=== PATIENT | male | born 1965 | race Caucasian/White ===

== ENCOUNTER 2019-05-04 15:36 | Inpatient (IN) | payer MEDICAID ==
[~2019-05-04] VITALS: Ht 193 cm; Wt 104.3 kg
[2019-05-04 15:49] VITALS: BP_SYST 145
--- NOTE | 2019-05-04 15:56 | NUR ---
Patient to ER bed 5 to gown for evaluation. Side rails up. Report given to Bala ZARCO.
--- NOTE | 2019-05-04 16:00 | NUR ---
ER at bedside examining patient.
--- NOTE | 2019-05-04 16:02 | NUR ---
Pt c/o L Arm pain. Pt h/o DVT. Pt has mild pain and denies SOB at this time.
--- NOTE | 2019-05-04 16:17 | NUR ---
US at bedside
[2019-05-04 16:38] LABS: EOSINOPHILS # (AUTO) 0.2 K/uL (0.0-0.4); EOSINOPHILS % (AUTO) 3.6 % (0.0-4.0); HEMATOCRIT 45.2 % (36-54); HEMOGLOBIN 15.5 g/dL (14.0-18.0); LYMPHOCYTES # (AUTO) 1.8 K/uL (1.0-5.5); LYMPHOCYTES % (AUTO) 33.4 % (20.5-51.5); MEAN CORPUSCULAR HEMOGLOBIN 30 pg (27-31); MEAN CORPUSCULAR HGB CONC 34 % (32-36); MEAN CORPUSCULAR VOLUME 88 fL (79.0-98.0); MONOCYTES # (AUTO) 0.6 K/uL (0.0-1.0); MONOCYTES % (AUTO) 10.6 % (1.7-9.3); PLATELET COUNT (AUTO) 152 K/uL (130-430); RED BLOOD CELL COUNT(AUTO) 5.16 MIL/uL (4.2-6.2); RED CELL DISTRIBUTION WIDTH 12.5 % (9.0-15.0); WHITE BLOOD COUNT (AUTO) 5.3 K/uL (4.8-10.8)
[2019-05-04 16:40] LABS: BASOPHILS % (AUTO) 0.4 % (0.0-2.0); NEUTROPHILS # (AUTO) 2.8 K/uL (1.8-7.7)
[2019-05-04 16:46] LABS: CALCIUM 8.8 mg/dL (8.4-11.0); CREATININE 0.89 mg/dL (0.55-1.30); POTASSIUM 4.7 mmol/L (3.5-5.1)
[2019-05-04 16:57] LABS: ALBUMIN 3.9 g/dL (3.4-4.8); TOTAL BILIRUBIN 0.6 mg/dL (0.0-1.0)
[2019-05-04 17:02] LABS: PROTHROMBIN TIME 10.3 SECS (9.5-12.5)
--- NOTE | 2019-05-04 17:25 | NUR ---
US completed, pt tolerated well.
[2019-05-04] MEDS ORDERED: ENOXAPARIN SODIUM 100 MG/ML SYRINGE SUBCUT ONE (18:00)
--- NOTE | 2019-05-04 18:08 | NUR ---
Patient will be admitted to care of . Admitted to TELEMETRY unit. Will go to room 118A. Belongings list completed. Summary report printed. Report will be given at bedside.
--- NOTE | 2019-05-04 18:30 | NUR ---
ADMISSION NOTE Received patient from ER via karen, received report from MIGUELINA ZARCO. Patient admitted with diagnosis of DVT LFT ARM . Patient oriented to hospital routine, call light, toileting and safety-patient verbalized understanding.
--- NOTE | 2019-05-04 18:35 | NUR ---
Admission Patient is A/Ox4, ambulatory with steady gait. No nausea, no vomiting. No dizziness. No complaints of pain at this this. Fiance at bedside. IV patent, intact. no bleeding noted. No infiltration. Oriented patient to the unit, and room. on safety precautions, HOB kept elevated. bed alarm on, bed in lowest position. Educated patient n the call light system, call light within reach. Patient in stable condition.
[2019-05-04 18:38] VITALS: BP_SYST 147
--- NOTE | 2019-05-04 18:50 | NUR ---
CONSULTATION PAGED/CALLED Reason for Consultation: UNPROVOKED DVT Person Who was Notified: LAVELLE Consulting Physician: DR. MARLEY Creel Selector Specialty: HEMATOLOGY Ordering Physician: DR. VARGAS
--- NOTE | 2019-05-04 19:30 | NUR ---
Opening notes Pt AAOx4, VSS, no s/s distress noted. IV saline lock R. FA 18G clear and patent. Pt's fiancee at bedside. Call light within reach. Pt updated with plan of care/consult with Paperhanger in AM, pt verbalized understanding. To monitor.
[2019-05-04 20:50] VITALS: BP_SYST 145
[2019-05-04] MEDS ORDERED: ZOLPIDEM TARTRATE 5 MG TABLET PO PRN (21:15)
[2019-05-04] MEDS ORDERED: ACETAMINOPHEN 500 MG TABLET PO PRN (21:15)
--- NOTE | 2019-05-04 21:52 | NUR ---
Pt left AMA Pt left AMA at 2141, but refused to sign AMA form, informed Dr. Chatman that pt states, "I was told by ER doctor that he will be seen by doctor/specialist susan and he will be bridged into warfarin or coumadin, but nothing is being done." Explained to pt risks/benefits. IV R forearm removed, ID band and tele box removed. Pt's fiancee at bedside. CRN aware.
--- NOTE | 2019-05-04 23:29 | NUR ---
CONSULTATION CANCELLED; CALLED TO CANCEL CONSULT. PT LEFT AMA. SPOKE WITH LAVELLE
[2019-05-05] MEDS ORDERED: FAMOTIDINE 20 MG TABLET PO SCH (09:00)
== END 2019-05-04 21:42 | disposition left against medical advice (07) | DRG 197 ==
LOC: SED 15:36 → STU 18:01
PROVIDERS: ADMIT Internal Medicine; ATTEND Internal Medicine
DX: I82.612 Acute embolism and thrombosis of superficial veins of left upper extremity (principal); F17.210 Nicotine dependence, cigarettes, uncomplicated; Z53.21 Procedure and treatment not carried out due to patient leaving prior to being seen by health care provider; Z86.718 Personal history of other venous thrombosis and embolism; Z86.711 Personal history of pulmonary embolism; Z87.01 Personal history of pneumonia (recurrent)
CPT/HCPCS: 36415; 80053; 83690-TC; 85025; 85610-TC; 85730-TC; 93971; 99285; G0378; J1650

== ENCOUNTER 2019-06-08 15:23 | Inpatient (IN) | payer MEDICAID ==
[~2019-06-08] VITALS: Ht 193 cm; Wt 113.4 kg
[2019-06-08 15:26] VITALS: BP_SYST 137
--- NOTE | 2019-06-08 15:34 | NUR ---
Patient to ER bed 8 to gown for evaluation. Side rails up. Report given to Zoraida ZARCO.
--- NOTE | 2019-06-08 15:35 | NUR ---
Pt brought by self , A&Ox4, pt presents to ER with R back pain,denies trauma , skin pink and warm, cap refill <3, VSS, respirations even and unlabored.
--- NOTE | 2019-06-08 15:45 | NUR ---
Dr Hayes at bedside examining patient
[2019-06-08 16:13] LABS: HEMATOCRIT 43.3 % (36-54); HEMOGLOBIN 14.8 g/dL (14.0-18.0); MEAN CORPUSCULAR VOLUME 87 fL (79.0-98.0); RED BLOOD CELL COUNT(AUTO) 4.98 MIL/uL (4.2-6.2)
[2019-06-08 16:14] LABS: BASOPHILS % (AUTO) 0.6 % (0.0-2.0); EOSINOPHILS # (AUTO) 0.2 K/uL (0.0-0.4); EOSINOPHILS % (AUTO) 3.4 % (0.0-4.0); LYMPHOCYTES # (AUTO) 1.5 K/uL (1.0-5.5); LYMPHOCYTES % (AUTO) 29.1 % (20.5-51.5); MEAN CORPUSCULAR HEMOGLOBIN 30 pg (27-31); MEAN CORPUSCULAR HGB CONC 34 % (32-36); MONOCYTES # (AUTO) 0.4 K/uL (0.0-1.0); MONOCYTES % (AUTO) 8.2 % (1.7-9.3); NEUTROPHILS # (AUTO) 2.9 K/uL (1.8-7.7); NEUTROPHILS % (AUTO) 58.7 % (40.0-70.0); PLATELET COUNT (AUTO) 135 K/uL (130-430); RED CELL DISTRIBUTION WIDTH 12.3 % (9.0-15.0)
[2019-06-08 16:39] LABS: CALCIUM 8.8 mg/dL (8.4-11.0); POTASSIUM 4.1 mmol/L (3.5-5.1)
[2019-06-08 16:40] LABS: ALBUMIN 3.9 g/dL (3.4-4.8); CREATININE 0.88 mg/dL (0.55-1.30); TOTAL BILIRUBIN 0.7 mg/dL (0.0-1.0)
[2019-06-08] MEDS ORDERED: IBUP-2604 PO (17:38)
[2019-06-08] MEDS ORDERED: RIVA10TA PO (17:38)
--- NOTE | 2019-06-08 17:39 | NUR ---
Pt off the unit for CT
[2019-06-08] MEDS ORDERED: IOHEXOL 350 mgI/mL, 150 ML INFUS..BTL IV ONE (18:00)
--- NOTE | 2019-06-08 18:10 | NUR ---
Pt returned from CT on stable condition, VSS
[2019-06-08] MEDS ORDERED: MORPHINE 2 MG/ML INJ. SYRINGE IVP ONE (18:30)
[2019-06-08] MEDS ORDERED: ONDANSETRON HCL 4 MG/2 ML VIAL IVP ONE (18:30)
[2019-06-08] MEDS ORDERED: ASPIRIN 81 MG TAB.CHEW PO ONE (19:00)
--- NOTE | 2019-06-08 19:11 | NUR ---
Pt A&Ox4, VSS, respirations even and unlabored, pt denies chest pain
[2019-06-08] MEDS ORDERED: ALBUTEROL SULFATE 0.083% 2.5 MG/3 ML VIAL.NEB INH PRN (19:30)
[2019-06-08] MEDS ORDERED: IPRATROPIUM BROM 0.5 MG/2.5 ML VIAL.NEB (ATROVENT) INH PRN (19:30)
--- NOTE | 2019-06-08 19:48 | NUR ---
ADMISSION: The patient, RAFAEL MORALES, 53 y/o, M admitted by MIRTA RAMIRES MD, was given written information regarding hospital policies, unit procedures and contact persons. Valuables were checked and pt oriented to his room and surroundings.
--- NOTE | 2019-06-08 19:53 | NUR ---
Patient will be admitted to care of Dr Reese . Admitted to Tele unit. Will go to room 100B . Belongings list completed. Summary report printed. Report will be given at bedside.
[2019-06-08 20:00] VITALS: BP_SYST 137
[2019-06-08] MEDS ORDERED: RIVAROXABAN 10 MG TABLET PO ONE (20:00)
[2019-06-08] MEDS: IPRATROPIUM BROM 0.5 MG/2.5 ML VIAL.NEB (ATROVENT) INH SCH ×2 (20:40→23:00)
[2019-06-08] MEDS: ALBUTEROL SULFATE 0.083% 2.5 MG/3 ML VIAL.NEB INH SCH ×2 (20:40→23:00)
--- NOTE | 2019-06-08 20:42 | NUR ---
Pt refused Xarelto and stated he already took this medication twice today.
[2019-06-08 20:59] VITALS: BP_SYST 127
--- NOTE | 2019-06-08 21:30 | NUR ---
Pt denies chest pain or pressure. HS snacks provided and pt ate 100%. Fall and safety precautions are in place.
--- NOTE | 2019-06-08 22:48 | NUR ---
Consultation Paged Reason for Consult: Elevated Troponin Was consult called: Y Person who was notified: Brandi Consulting Physician: Maxim [employer] Ordering Physician: Dr. Reese
--- NOTE | 2019-06-08 23:00 | NUR ---
Pt is sleeping without any distress noted. senior patrol agent is showing SR. Fall and safety precautions are in place. . Pt's fiance is sleeping in a recliner at the bedside
[2019-06-09] VITALS: BP_SYST 123
--- NOTE | 2019-06-09 01:00 | NUR ---
Pt is sleeping comfortably in bed with his fiance sleeping in a recliner at the bedside. study director is showing SR. Fall and safety precautions are in place.
[2019-06-09] MEDS: ALBUTEROL SULFATE 0.083% 2.5 MG/3 ML VIAL.NEB INH SCH ×6 (03:00→23:00)
[2019-06-09] MEDS: IPRATROPIUM BROM 0.5 MG/2.5 ML VIAL.NEB (ATROVENT) INH SCH ×6 (03:00→23:40)
--- NOTE | 2019-06-09 03:00 | NUR ---
Pt continues to sleep without any distress noted. Fall and safety precautions are in place. Pt's fiance is sleeping at the bedside in a recliner.
--- NOTE | 2019-06-09 04:30 | NUR ---
Pt is awake and c/o abdominal pain, which pt stated he gets every morning and has been taking Ibuprofen for the pain. Pt stated he does not want pain medication at this time, but he will call if he needs it. Pt denies chest pain or pressure. Fall and safety precautions are in place.
--- NOTE | 2019-06-09 06:15 | NUR ---
Late Entry due to pt care: Pt c/o severe (05/04) abdominal pain and stated this happens every morning. Pt stated it has been ongoing for a long time and nothing is being done about it. He stated he was previously admitted to the hospital for the same symptoms and the condition was not resolved. Pt stated he takes Ibuprofen every morning with some relief. Pt also stated Morphine or Tylenol does not help. Pt further stated Dilaudid or Tylenol with Codeine, either #3 or #4 will help. Pt is sitting in a recliner while his fiance is sleeping in his hospital bed. Pt was informed the bed is for him and not his fiance. Pt's got out of the bed and sat in a chair. Pt then stated sitting up in a chair, not bed is what he does to deal with the pain, besides taking Ibuprofen. Pt also stated he is getting irritated from the abdominal pain and something has to be done right away. Pt was informed Dr. Reese would be paged.
--- NOTE | 2019-06-09 06:27 | NUR ---
Dr. Reese called back and was informed pt is c/o severe (05/04) abdominal pain and requested either Dilaudid or Tylenol with Codeine because Morphine and Tylenol don't relieve the pain. Dr. Reese ordered Fentanyl 25mcg IVP x1 and stated, "We will go from there later."
[2019-06-09] MEDS ORDERED: fentaNYL CITRATE/PF 100 MCG/2 ML AMP IVP ONE (06:30)
--- NOTE | 2019-06-09 06:53 | NUR ---
Fentanyl 25mcg was given IVP as ordered by Dr. Reese. Potential side effects of Fentanyl were discussed with pt, utilizing the Medication Side Effects Facts Sheet and pt verbalized understanding. Pt was instructed to take the sheet home with him upon discharge and pt also verbalized understanding. Pt was also instructed not to get out of bed without calling for assistance if he gets dizzy or drowsy to prevent fall or injury and pt again verbalized understanding. Pt is now resting in bed with bed in the lowest and locked positions. Call light is with pt and his fiance is sitting in a recliner at his bedside.
[2019-06-09] MEDS ORDERED: fentaNYL CITRATE/PF 100 MCG/2 ML AMP ONE (07:00)
--- NOTE | 2019-06-09 07:23 | NUR ---
Pt is still c/o 04/03 abdominal pain and stated Fentanyl did not relieve the pain. Bedside report was given to day shift nurse Yuki who will contact Dr. Reese for additional pain medication. Pt denies chest pain or pressure.
[2019-06-09 08:00] VITALS: BP_SYST 127
--- NOTE | 2019-06-09 08:00 | NUR ---
Note Pt sitting up in bed eating his breakfast at this time. Pt's fiance at bedside all night. Tele unit attached and intact all shift. IV in right AC intact and patent at this time. No SOB/resp distress noted at this time. No needs noted at this time. Call light within reach.
[2019-06-09] MEDS ORDERED: RIVAROXABAN 10 MG TABLET PO SCH (09:00)
--- NOTE | 2019-06-09 09:30 | NUR ---
DC Planning: dcp is pending dr. Rea consultation for medication adjustment.
[2019-06-09] MEDS ORDERED: fentaNYL CITRATE/PF 100 MCG/2 ML AMP IVP PRN ×2 (10:15)
--- NOTE | 2019-06-09 11:30 | NUR ---
Note Dr Reese on the floor at 0915am. Pt was seen and assessed by Dr Rea at 0840am and orders written and carried out. Dr Reese was informed that Fentanyl does not work on pt's pain, pt requesting Dilaudid pain medication or/and Tylenol #4, per pt's request. stated he would consider this request once he looks into pt's labs and test. Pt notified. Call light within reach.
--- NOTE | 2019-06-09 11:40 | NUR ---
Note New IV inserted in right forearm at this time. Previous IV in right AC tender to touch and infiltrated at this time.
--- NOTE | 2019-06-09 12:20 | NUR ---
Note Pt upset that he is not going to receive Dilaudid IVP or Tylenol #4 for pain. Pt and his fiance state the pain has been on going for 8 hours and that the Fentanyl IVP not effective all shift. Informed Lois - Director of Med/Surg unit. Lois will go in to see pt and see what she may do to assist pt. Pt in BS chair at this time.
[2019-06-09 12:38] VITALS: BP_SYST 140
[2019-06-09] MEDS ORDERED: IBUPROFEN 400 MG TABLET PO PRN (12:45)
[2019-06-09] MEDS ORDERED: HYDROmorphone 1 MG INJ. 1 MG/ML AMPUL IVP PRN (13:00)
[2019-06-09] MEDS ORDERED: IBUPROFEN 400 MG TABLET ONE (13:08)
[2019-06-09] MEDS: HYDROmorphone 2 MG/ML VIAL IVP PRN ×3 (14:05→23:46)
--- NOTE | 2019-06-09 15:25 | NUR ---
Note Dr Reese called back and ordered Motrin 400mg PO Q8' and Dilaudid IVP at 1300. Pt was given Dilaudid 2mg IVP at 1400. Pt now resting with no severe abdominal pain at this time. Pt's fiance has been at bedside all shift. Call light within reach. IV in right forearm intact and patent.
[2019-06-09 16:56] VITALS: BP_SYST 119
--- NOTE | 2019-06-09 18:20 | NUR ---
Note Pt sitting up in bed eating his dinner at this time. Pain tolerable at this time. Pt's fiance at bedside at this time. IV in right forearm intact and patent at this time. Pt was checked on q1' and PRN all shift for needs and care. Tele unit attached and intact all shift. Call light within reach.
--- NOTE | 2019-06-09 19:15 | NUR ---
Pt was received sleeping in bed with no respiratory distress noted. Call light is with pt and bed is in the lowest and locked positions. damascener is showing SR.
--- NOTE | 2019-06-09 21:00 | NUR ---
Pt continues to sleep without any respiratory distress noted. Pt's fiance is also sound asleep in pt's room. Call light is with pt and bed remains in the lowest and locked positions. harness worker is showing SR.
--- NOTE | 2019-06-09 22:30 | NUR ---
Pt is still sleeping and snoring loudly. icicle machine operator is showing SB to SR (HR between 55 and 61). Call light remains with pt and bed is in the lowest and locked positions. Pt's fiance is also sound asleep.
[2019-06-09 23:35] VITALS: BP_SYST 132
--- NOTE | 2019-06-09 23:35 | NUR ---
Pt woke up and called for IV Dilaudid. Pt stated abdominal pain is 8/10. Vital signs taken and stable.
--- NOTE | 2019-06-09 23:46 | NUR ---
Dilaudid 2mg was given IV for c/o 8/10 abdominal pain. Saline lock in LFA is without any signs of infiltration. Pt was instructed to call for assistance before getting out of bed if he feels dizzy or drowsy and pt verbalized understanding. Call light is with pt and bed is in the lowest and locked positions.
[2019-06-10 00:49] VITALS: BP_SYST 121
--- NOTE | 2019-06-10 01:00 | NUR ---
Pt is sleeping without any respiratory distress noted. Call light is with pt and bed is in the lowest and locked positions. Pt's fiance is at the bedside.
[2019-06-10] MEDS: ALBUTEROL SULFATE 0.083% 2.5 MG/3 ML VIAL.NEB INH SCH ×5 (03:00→19:00)
[2019-06-10] MEDS: IPRATROPIUM BROM 0.5 MG/2.5 ML VIAL.NEB (ATROVENT) INH SCH ×5 (03:00→19:00)
--- NOTE | 2019-06-10 03:00 | NUR ---
Pt is sleeping comfortably in bed. Fall and safety precautions are in place.
--- NOTE | 2019-06-10 05:00 | NUR ---
Pt is sleeping and snoring loudly. die cut operator is showing SR with HR in the 60's. Call light remains with pt and bed is in the lowest and locked positions.
--- NOTE | 2019-06-10 05:57 | NUR ---
Nutrition Update Endy Scale 18 noted. Pt admitted for Chest Pain, Elevated Troponin Diet: 2gm Na BMI: 30.4 kg/m2 RD to follow per nutrition care standards.
--- NOTE | 2019-06-10 06:14 | NUR ---
Pt is resting comfortably in bed. All pt's needs were attended to. Saline lock in RFA is without any signs of infiltration. Will endorse to say shift nurse.
--- NOTE | 2019-06-10 07:15 | NUR ---
sbar report received from devan nurse at the bedside. patient aaox 4.ambulatory. lungs bilaterally clear. abdomen soft and non distended. has iv access on the rt forearm #22. saline lock. has dressing on the right ac dry/intact. bed low position,alarmed and locked. call lights within reach. no pain nor acute distress noted.
--- NOTE | 2019-06-10 07:55 | NUR ---
Pt c/o irritation in his right elbow, "Due to dye injected during CT Angiogram of my chest." The area appears pinkish with small amount of pinkish drainage noted. No odor noted. Site was cleansed with Betadine swabstick, followed by non-stick pad and Fidel wrap. Addendum: 06/10/19 at 0829 by Fatoumata Price RN Pt stated he is not allergic to Iodine. Photo of the site was taken prior to applying dressing. Endorsed to day shift nurse. Day shift charge nurse and Dept's Director were notified.
[2019-06-10 08:26] VITALS: BP_SYST 124
--- NOTE | 2019-06-10 09:30 | NUR ---
dr ybarra came to see the patient. patient verbalized wants to be discharge today, but dr ybarra ordered to have ct scan of the abdomen, at first refusing to have the procedure, but he finally agreed to have the procedure.
--- NOTE | 2019-06-10 09:35 | NUR ---
xarelto 20 mg po given.
[2019-06-10] MEDS ORDERED: DIATR MEGLU/DIATRIZ SOD 30 ML SOLUTION PO ONE (09:44)
[2019-06-10] MEDS: RIVAROXABAN 10 MG TABLET PO SCH (09:46)
[2019-06-10] MEDS: HYDROmorphone 2 MG/ML VIAL IVP PRN ×4 (09:52→23:01)
--- NOTE | 2019-06-10 09:52 | NUR ---
GI consult called: for Dr. Jarocho Larry, regarding abdominal pain, ordered by Dr. Reese, spoke with Heydi.
--- NOTE | 2019-06-10 09:55 | NUR ---
Hemo consult called: for Dr. Deng (Dr. Pablo line production cook), regarding hypercoaguable state, ordered by Dr. Reese, spoke with Claudine at [facility]
[2019-06-10] MEDS ORDERED: IOHEXOL 100 ML IV ONE (11:30)
[2019-06-10 12:34] VITALS: BP_SYST 126
--- NOTE | 2019-06-10 14:29 | NUR ---
diluadid 2 mg iv given. made comfortable. assists on adls.
--- NOTE | 2019-06-10 14:55 | NUR ---
dr cervantes called and notify of the result of ct of the abdomen. said will come to see the patient today, if not tomorrow
--- NOTE | 2019-06-10 14:56 | NUR ---
assists of adls. girlfriend at the bedside.
--- NOTE | 2019-06-10 16:00 | NUR ---
patient stable. no complained so far. no pain
[2019-06-10 16:50] VITALS: BP_SYST 121
--- NOTE | 2019-06-10 18:00 | NUR ---
went to the bathroom. family came to visit the patient.
--- NOTE | 2019-06-10 19:00 | NUR ---
dilaudid 2 mg iv given. assists on adls.
--- NOTE | 2019-06-10 19:20 | NUR ---
endorsed to incoming nurse Beatrice ZARCO
--- NOTE | 2019-06-10 19:30 | NUR ---
Opening notes Received report. Patient is resting comfortably in bed. No signs of distress noted. Breathing even and unlabored. Denies any pain at this time. IV patent and intact, no signs of infiltration noted. Updated patient on plan of care, patient verbalized understanding. No other needs. Call light with the patient. Safety precautions in place.
[2019-06-10 20:00] VITALS: BP_SYST 125
--- NOTE | 2019-06-10 21:34 | NUR ---
Abdominal and neck pain PRN motrin given. Educated the action and side effects of medication. Patient verbalized understanding and tolerated well. Provided patient with ice water. No other needs. Call light with the patient. Safety precautions in place. Addendum: 06/10/19 at 2310 by Milly Pradhan RN Patient still complains of abdominal pain. PRN dilaudid given. Educated the action and side effects, along with fall precautions. Patient verbalized understanding and tolerated well. No signs of allergic reaction noted. No other needs at this time. Call light with the patient. Safety precautions in place.
[2019-06-11 00:22] VITALS: BP_SYST 143
--- NOTE | 2019-06-11 01:00 | NUR ---
Sleeping No signs of distress noted. Breathing even and unlabored. No needs at this time. Call light with the patient. Safety precautions in place.
--- NOTE | 2019-06-11 04:00 | NUR ---
Sleeping No signs of distress noted. Breathing even and unlabored. Call light with the patient. Safety precautions in place.
[2019-06-11] MEDS: HYDROmorphone 2 MG/ML VIAL IVP PRN (06:30)
--- NOTE | 2019-06-11 06:44 | NUR ---
Closing notes Patient sitting in bedside chair. No signs of distress noted. Breathing even and unlabored. Patient complain of abdominal pain, prn dilaudid given. Educated the patient the action and side effects of medications, and fall precautions. Patient verbalized understanding and tolerated well. No signs of allergic reaction noted. All needs met throughout the shift. Call light with the patient. Safety precautions in place. Will endorse care to day shift RN. Pink at bedside.
[2019-06-11] MEDS: ALBUTEROL SULFATE 0.083% 2.5 MG/3 ML VIAL.NEB INH SCH (07:00)
[2019-06-11] MEDS: IPRATROPIUM BROM 0.5 MG/2.5 ML VIAL.NEB (ATROVENT) INH SCH (07:00)
--- NOTE | 2019-06-11 07:45 | NUR ---
INITIAL NOTE PT IS SITTING ON THE CHAIR. ALERT AND ORIENTED X4, PT'S IS AT BEDSIDE, IN RA, NO SOB, SR ON CARDIA MONITOR, LITTLE SKIN TEAR ON RIGHT ELBOW, REVIEWED PLAN OF CARE, CALL LIGHT WITHIN REACH
[2019-06-11 07:56] VITALS: BP_SYST 119
--- NOTE | 2019-06-11 08:23 | NUR ---
GI ROUND DR VERONICA IS ASSESSING PT AT BEDSIDE
[2019-06-11] MEDS: RIVAROXABAN 10 MG TABLET PO SCH (08:35)
--- NOTE | 2019-06-11 09:30 | NUR ---
[id number] RAMIRES IS ON NURSE'S STATION AND MADE AWARE OF DR VERONICA'S ORDER OF FOLLOW UP WITH DR VERONICA IN 2 WEEKS AND TO GO HOME WITH [facility], DR RAMIRES STATED THAT HE JUST TALK TO DR VERONICA
[2019-06-11] MEDS ORDERED: RIVA20TA PO (10:18)
[2019-06-11] MEDS ORDERED: OMEP10SU2 PO (10:19)
[2019-06-11 10:36] VITALS: BP_SYST 120
--- NOTE | 2019-06-11 11:00 | NUR ---
D/C Patient Patient given medication reconciliation form and D/C instructions. Exit Care provided. Patient verbalized understanding. MD discussed with patient the results and treatment provided. Ambulatory with steady gait for discharge to home. Patient in stable condition, ID band removed. IV catheter removed, intact and dressing applied, no active bleeding. Rx of PRILOSEC AND XARELTO given. Patient educated on pain AND S/E OF PRESCRIBE MEDS management. All belongings sent with patient.
== END 2019-06-11 11:00 | disposition home or self-care (01) | DRG 197 ==
LOC: SED 15:23 → STU 19:26
PROVIDERS: ADMIT Internal Medicine Hospice and Palliative Medicine; ATTEND Internal Medicine Hospice and Palliative Medicine
DX: I82.B12 Acute embolism and thrombosis of left subclavian vein (principal); I24.8 Other forms of acute ischemic heart disease; I82.210 Acute embolism and thrombosis of superior vena cava; F17.210 Nicotine dependence, cigarettes, uncomplicated; I10 Essential (primary) hypertension; J44.9 Chronic obstructive pulmonary disease, unspecified; Z79.01 Long term (current) use of anticoagulants; Z80.0 Family history of malignant neoplasm of digestive organs; Z86.711 Personal history of pulmonary embolism; Z86.718 Personal history of other venous thrombosis and embolism; Z71.6 Tobacco abuse counseling
CPT/HCPCS: 36415; 71045; 71275; 80053; 82550-TC; 83880; 84484; 85025; 85379; 93005; 93306; 96374; 96375; 99291; G0378; J1170; J2270; J2405; J3010; J7613; Q9964; Q9967

== ENCOUNTER 2019-07-16 20:30 | Inpatient (IN) | payer SELFPAY ==
[~2019-07-16] VITALS: Ht 193 cm; Wt 109.8 kg
[~2019-07-16 20:30] MED LIST: OMEP10SU2 PO; RIVA20TA PO
[2019-07-16 20:51] VITALS: BP_SYST 131
[2019-07-16] MEDS ORDERED: MORPHINE 2 MG/ML INJ. SYRINGE IVP ONE (21:15)
[2019-07-16] MEDS ORDERED: ONDANSETRON HCL 4 MG/2 ML VIAL IVP ONE (21:15)
[2019-07-16] MEDS ORDERED: ACETAMINOPHEN/CODEINE 300 MG-30 MG TABLET PO ONE (21:30)
[2019-07-16 21:35] LABS: BASOPHILS % (AUTO) 0.7 % (0.0-2.0); EOSINOPHILS # (AUTO) 0.1 K/uL (0.0-0.4); EOSINOPHILS % (AUTO) 3.8 % (0.0-4.0); HEMOGLOBIN 13.8 g/dL (14.0-18.0); LYMPHOCYTES # (AUTO) 0.9 K/uL (1.0-5.5); LYMPHOCYTES % (AUTO) 23.9 % (20.5-51.5); MEAN CORPUSCULAR HEMOGLOBIN 29 pg (27-31); MEAN CORPUSCULAR HGB CONC 34 % (32-36); MEAN CORPUSCULAR VOLUME 85 fL (79.0-98.0); MONOCYTES # (AUTO) 0.5 K/uL (0.0-1.0); MONOCYTES % (AUTO) 12.2 % (1.7-9.3); NEUTROPHILS # (AUTO) 2.2 K/uL (1.8-7.7); NEUTROPHILS % (AUTO) 59.4 % (40.0-70.0); PLATELET COUNT (AUTO) 159 K/uL (130-430); RED BLOOD CELL COUNT(AUTO) 4.69 MIL/uL (4.2-6.2); RED CELL DISTRIBUTION WIDTH 12.3 % (9.0-15.0); WHITE BLOOD COUNT (AUTO) 3.7 K/uL (4.8-10.8)
[2019-07-16 21:49] LABS: CALCIUM 8.4 mg/dL (8.4-11.0); CREATININE 0.72 mg/dL (0.55-1.30); POTASSIUM 3.7 mmol/L (3.5-5.1)
[2019-07-16 21:56] LABS: ALBUMIN 3.6 g/dL (3.4-4.8); TOTAL BILIRUBIN 0.5 mg/dL (0.0-1.0)
[2019-07-16] MEDS ORDERED: NACL 0.9% 1,000 ML IV ONE (22:15)
[2019-07-17] MEDS ORDERED: HYDROmorphone 1 MG INJ. 1 MG/ML AMPUL IVP PRN (03:15)
[2019-07-17 03:42] VITALS: BP_SYST 138
[2019-07-17] MEDS: HYDROmorphone 2 MG/ML VIAL IVP PRN ×4 (03:59→23:57)
[2019-07-17 04:00] VITALS: BP_SYST 138
[2019-07-17 07:40] VITALS: BP_SYST 110
[2019-07-17] MEDS ORDERED: MORPHINE 2 MG/ML INJ. SYRINGE IVP PRN (11:30)
[2019-07-17] MEDS ORDERED: LORazepam 2 MG/ML VIAL IVP PRN (11:30)
[2019-07-17] MEDS ORDERED: MORPHINE 4 MG/ML INJ. SYRINGE IVP PRN (11:30)
[2019-07-17] MEDS ORDERED: ONDANSETRON HCL 4 MG/2 ML VIAL IVP PRN (11:30)
[2019-07-17] MEDS: HYDROmorphone 1 MG INJ. 1 MG/ML AMPUL IVP PRN ×3 (12:01→17:28)
[2019-07-17 12:05] VITALS: BP_SYST 129
[2019-07-17] MEDS ORDERED: DIATR MEGLU/DIATRIZ SOD 30 ML SOLUTION PO ONE (12:24)
[2019-07-17 12:59] LABS: CHOLESTEROL 112 mg/dL (<200); HDL CHOLESTEROL 28 mg/dL (>45); LDL CHOLESTEROL 73 mg/dL (<100); TRIGLYCERIDES 52 mg/dL (30-150)
[2019-07-17] MEDS: D5NS 1,000 ML IV SCH ×3 (13:15→23:58)
[2019-07-17] MEDS ORDERED: PANT20TA2 PO (13:41)
[2019-07-17] MEDS ORDERED: LOSA25TA3 PO (13:41)
[2019-07-17] MEDS ORDERED: tylenol #4 PO (13:41)
[2019-07-17] MEDS ORDERED: METH750T3 GT (13:41)
[2019-07-17] MEDS ORDERED: IBUP-1970 PO (13:41)
[2019-07-17] MEDS ORDERED: TYC3 PO (13:41)
[2019-07-17] MEDS ORDERED: IOHEXOL 100 ML IV ONE (14:49)
[2019-07-17] MEDS ORDERED: HYDROmorphone 1 MG INJ. 1 MG/ML AMPUL IVP ONE (17:30)
[2019-07-17] MEDS: FAMOTIDINE PF 20 MG/2 ML VIAL IVP SCH (19:58)
[2019-07-17 20:00] VITALS: BP_SYST 128
[2019-07-18] VITALS: BP_SYST 127
[2019-07-18] MEDS: HYDROmorphone 2 MG/ML VIAL IVP PRN ×5 (04:01→20:10)
[2019-07-18 07:15] LABS: BASOPHILS % (AUTO) 0.6 % (0.0-2.0); EOSINOPHILS # (AUTO) 0.1 K/uL (0.0-0.4); EOSINOPHILS % (AUTO) 3.5 % (0.0-4.0); HEMATOCRIT 35.5 % (36-54); HEMOGLOBIN 12.2 g/dL (14.0-18.0); LYMPHOCYTES # (AUTO) 0.8 K/uL (1.0-5.5); LYMPHOCYTES % (AUTO) 21.2 % (20.5-51.5); MEAN CORPUSCULAR HEMOGLOBIN 30 pg (27-31); MEAN CORPUSCULAR HGB CONC 34 % (32-36); MEAN CORPUSCULAR VOLUME 86 fL (79.0-98.0); MONOCYTES # (AUTO) 0.4 K/uL (0.0-1.0); MONOCYTES % (AUTO) 11.2 % (1.7-9.3); NEUTROPHILS # (AUTO) 2.3 K/uL (1.8-7.7); NEUTROPHILS % (AUTO) 63.5 % (40.0-70.0); PLATELET COUNT (AUTO) 137 K/uL (130-430); RED BLOOD CELL COUNT(AUTO) 4.12 MIL/uL (4.2-6.2); RED CELL DISTRIBUTION WIDTH 12.5 % (9.0-15.0); WHITE BLOOD COUNT (AUTO) 3.7 K/uL (4.8-10.8)
[2019-07-18 07:24] LABS: CALCIUM 8.1 mg/dL (8.4-11.0); CREATININE 0.66 mg/dL (0.55-1.30); POTASSIUM 3.9 mmol/L (3.5-5.1)
[2019-07-18 08:12] VITALS: BP_SYST 121
[2019-07-18] MEDS: FAMOTIDINE PF 20 MG/2 ML VIAL IVP SCH ×2 (09:17→20:10)
[2019-07-18] MEDS: RIVAROXABAN 10 MG TABLET PO SCH (09:18)
[2019-07-18] MEDS: D5NS 1,000 ML IV SCH ×2 (09:19→20:37)
[2019-07-18 12:01] VITALS: BP_SYST 117
[2019-07-18 13:18] LABS: BARBITURATE, URINE NEGATIVE (NEG <=200); BENZODIAZEPINE, URINE NEGATIVE (NEG <=150); CANNABINOID, URINE NEGATIVE (NEG <=50); COCAINE, URINE NEGATIVE (NEG <=150); METHAMPHETAMINES SCREEN,URINE NEGATIVE (NEG <=500); OPIATE, URINE POSITIVE (NEG <=100); PHENCYCLIDINE SCREEN,URINE NEGATIVE (NEG <=25); UR TRICYCLIC ANTIDEPRESSANTS NEGATIVE (NEG <=300); URINE AMPHETAMINE NEGATIVE (NEG <=500); URINE METHADONE NEGATIVE (NEG <=200); URINE OXYCODONE SCREEN NEGATIVE (NEG <=100); URINE PROPOXYPHENE SCREEN NEGATIVE (NEG <=300)
[2019-07-18 16:00] VITALS: BP_SYST 145
[2019-07-18 20:00] VITALS: BP_SYST 132
[2019-07-19] MEDS: HYDROmorphone 2 MG/ML VIAL IVP PRN ×5 (00:28→21:23)
[2019-07-19] MEDS: D5NS 1,000 ML IV SCH (06:59)
[2019-07-19 07:19] LABS: BASOPHILS % (AUTO) 0.6 % (0.0-2.0); EOSINOPHILS # (AUTO) 0.1 K/uL (0.0-0.4); EOSINOPHILS % (AUTO) 3.3 % (0.0-4.0); HEMATOCRIT 37.9 % (36-54); HEMOGLOBIN 13.2 g/dL (14.0-18.0); LYMPHOCYTES # (AUTO) 0.9 K/uL (1.0-5.5); LYMPHOCYTES % (AUTO) 21.8 % (20.5-51.5); MEAN CORPUSCULAR HEMOGLOBIN 29 pg (27-31); MEAN CORPUSCULAR HGB CONC 35 % (32-36); MEAN CORPUSCULAR VOLUME 84 fL (79.0-98.0); MONOCYTES # (AUTO) 0.5 K/uL (0.0-1.0); MONOCYTES % (AUTO) 11.7 % (1.7-9.3); NEUTROPHILS # (AUTO) 2.5 K/uL (1.8-7.7); NEUTROPHILS % (AUTO) 62.6 % (40.0-70.0); PLATELET COUNT (AUTO) 162 K/uL (130-430); RED BLOOD CELL COUNT(AUTO) 4.49 MIL/uL (4.2-6.2); RED CELL DISTRIBUTION WIDTH 12.2 % (9.0-15.0)
[2019-07-19] MEDS ORDERED: MEPERIDINE HCL/PF 100 MG/ML AMP ONE (07:23)
[2019-07-19] MEDS ORDERED: SIMETHICONE 40 MG/0.6 ML ML ONE (07:24)
[2019-07-19 07:33] LABS: INR 1.2 (0.80-1.20); PROTHROMBIN TIME 12.3 SECS (9.5-12.5)
[2019-07-19 07:44] LABS: ALBUMIN 3.3 g/dL (3.4-4.8); CALCIUM 8.3 mg/dL (8.4-11.0); CREATININE 0.66 mg/dL (0.55-1.30); POTASSIUM 3.8 mmol/L (3.5-5.1); TOTAL BILIRUBIN 0.7 mg/dL (0.0-1.0)
[2019-07-19] MEDS: MIDAZOLAM HCL 5 MG/5 ML VIAL ONE ×3 (07:57→08:01)
[2019-07-19 09:00] VITALS: BP_SYST 108
[2019-07-19] MEDS: FAMOTIDINE PF 20 MG/2 ML VIAL IVP SCH ×2 (09:30→21:28)
[2019-07-19 12:00] VITALS: BP_SYST 115
[2019-07-19] MEDS ORDERED: HYDROmorphone 1 MG INJ. 1 MG/ML AMPUL IVP ONE (13:30)
[2019-07-19] MEDS: RIVAROXABAN 10 MG TABLET PO SCH (16:46)
[2019-07-19 20:00] VITALS: BP_SYST 147
[2019-07-20 00:41] VITALS: BP_SYST 139
[2019-07-20] MEDS: D5NS 1,000 ML IV SCH ×2 (01:15→04:28)
[2019-07-20] MEDS: HYDROmorphone 2 MG/ML VIAL IVP PRN ×3 (04:06→13:18)
[2019-07-20 07:25] LABS: BASOPHILS % (AUTO) 0.9 % (0.0-2.0); EOSINOPHILS # (AUTO) 0.1 K/uL (0.0-0.4); HEMATOCRIT 35.2 % (36-54); HEMOGLOBIN 12.4 g/dL (14.0-18.0); LYMPHOCYTES # (AUTO) 0.8 K/uL (1.0-5.5); LYMPHOCYTES % (AUTO) 28.7 % (20.5-51.5); MEAN CORPUSCULAR HEMOGLOBIN 30 pg (27-31); MEAN CORPUSCULAR HGB CONC 35 % (32-36); MEAN CORPUSCULAR VOLUME 84 fL (79.0-98.0); MONOCYTES # (AUTO) 0.3 K/uL (0.0-1.0); MONOCYTES % (AUTO) 11.8 % (1.7-9.3); NEUTROPHILS # (AUTO) 1.5 K/uL (1.8-7.7); NEUTROPHILS % (AUTO) 53.6 % (40.0-70.0); PLATELET COUNT (AUTO) 139 K/uL (130-430); RED BLOOD CELL COUNT(AUTO) 4.18 MIL/uL (4.2-6.2); RED CELL DISTRIBUTION WIDTH 12.1 % (9.0-15.0); WHITE BLOOD COUNT (AUTO) 2.8 K/uL (4.8-10.8)
[2019-07-20 08:00] VITALS: BP_SYST 142
[2019-07-20 09:03] LABS: CREATININE 0.65 mg/dL (0.55-1.30); POTASSIUM 3.8 mmol/L (3.5-5.1)
[2019-07-20] MEDS: FAMOTIDINE PF 20 MG/2 ML VIAL IVP SCH (09:11)
[2019-07-20] MEDS: RIVAROXABAN 10 MG TABLET PO SCH (09:12)
[2019-07-20 13:05] VITALS: BP_SYST 122
[2019-07-20 17:04] VITALS: BP_SYST 126
[2019-07-20] MEDS ORDERED: HYDR-4272 PO (17:14)
[2019-07-20 17:42] VITALS: BP_SYST 126
== END 2019-07-20 18:10 | disposition home or self-care (01) | DRG 391 ==
LOC: SED 20:30 → SMU 07-17 03:11
PROVIDERS: ADMIT Preventive Medicine Preventive Medicine/Occupational Environmental Medicine; ATTEND Preventive Medicine Preventive Medicine/Occupational Environmental Medicine
PROC: 0DB68ZX Excision of Stomach, Via Natural or Artificial Opening Endoscopic, Diagnostic (ICD-10-PCS; 2019-07-19)
PROC: 0DB98ZX Excision of Duodenum, Via Natural or Artificial Opening Endoscopic, Diagnostic (ICD-10-PCS; principal; 2019-07-19 08:00)
DX: K29.70 Gastritis, unspecified, without bleeding (principal); K85.90 Acute pancreatitis without necrosis or infection, unspecified; E87.1 Hypo-osmolality and hyponatremia; R18.8 Other ascites; D64.9 Anemia, unspecified; E66.9 Obesity, unspecified; E88.09 Other disorders of plasma-protein metabolism, not elsewhere classified; G89.29 Other chronic pain; E83.52 Hypercalcemia; R73.03 Prediabetes; I10 Essential (primary) hypertension; J44.9 Chronic obstructive pulmonary disease, unspecified; R16.1 Splenomegaly, not elsewhere classified; Z87.01 Personal history of pneumonia (recurrent); Z86.718 Personal history of other venous thrombosis and embolism; Z86.711 Personal history of pulmonary embolism; Z79.899 Other long term (current) drug therapy; Z68.29 Body mass index [BMI] 29.0-29.9, adult
CPT/HCPCS: 36415; 43239; 71045; 74181; 76700-TC; 80048; 80053; 80061; 80307; 82150-TC; 82378; 82787; 83615-TC; 83690-TC; 84478-TC; 84484; 85025; 85610-TC; 85730-TC; 86038; 86301; 87081; 88305; 88312; 88313; 93005; 99285; J1170; J2060; J2175; J2250; J2270; J2405; J3490; J7030; J7042; Q9964; Q9967

== ENCOUNTER 2019-08-16 11:38 | Inpatient (IN) | payer OTHER ==
[~2019-08-16] VITALS: Ht 198.1 cm; Wt 108.9 kg
[~2019-08-16 11:38] MED LIST changes: +HYDR-4272 PO; +LOSA25TA3 PO; +METH750T3 GT; -OMEP10SU2 PO; +PANT20TA2 PO
[2019-08-16 11:51] VITALS: BP_SYST 181
[2019-08-16] MEDS ORDERED: KETAMINE 30 MG/3 ML SYRINGE IVP ONE (12:30)
[2019-08-16] MEDS ORDERED: KETAMINE 30 MG/3 ML SYRINGE 30 MG in NS 100 ML IV ONE (12:30)
[2019-08-16 12:31] LABS: BASOPHILS % (AUTO) 0.6 % (0.0-2.0); EOSINOPHILS # (AUTO) 0.1 K/uL (0.0-0.4); EOSINOPHILS % (AUTO) 1.8 % (0.0-4.0); HEMATOCRIT 40.3 % (36-54); HEMOGLOBIN 13.7 g/dL (14.0-18.0); LYMPHOCYTES # (AUTO) 0.4 K/uL (1.0-5.5); LYMPHOCYTES % (AUTO) 11.7 % (20.5-51.5); MEAN CORPUSCULAR HEMOGLOBIN 28 pg (27-31); MEAN CORPUSCULAR HGB CONC 34 % (32-36); MEAN CORPUSCULAR VOLUME 83 fL (79.0-98.0); MONOCYTES # (AUTO) 0.3 K/uL (0.0-1.0); MONOCYTES % (AUTO) 8.7 % (1.7-9.3); NEUTROPHILS # (AUTO) 2.6 K/uL (1.8-7.7); NEUTROPHILS % (AUTO) 77.2 % (40.0-70.0); PLATELET COUNT (AUTO) 129 K/uL (130-430); RED BLOOD CELL COUNT(AUTO) 4.83 MIL/uL (4.2-6.2); RED CELL DISTRIBUTION WIDTH 12.9 % (9.0-15.0); WHITE BLOOD COUNT (AUTO) 3.4 K/uL (4.8-10.8)
[2019-08-16 12:38] LABS: CALCIUM 8.5 mg/dL (8.4-11.0); CREATININE 0.51 mg/dL (0.55-1.30); POTASSIUM 3.9 mmol/L (3.5-5.1)
[2019-08-16 12:44] LABS: ALBUMIN 3.6 g/dL (3.4-4.8); TOTAL BILIRUBIN 1.1 mg/dL (0.0-1.0)
[2019-08-16 12:50] LABS: INR 1.3 (0.80-1.20); PROTHROMBIN TIME 13.3 SECS (9.5-12.5)
[2019-08-16] MEDS ORDERED: LR 1,000 ML IV ONE (13:30)
[2019-08-16] MEDS ORDERED: HYDROmorphone 2 MG/ML VIAL IVP ONE (13:30)
[2019-08-16 14:20] VITALS: BP_SYST 185
[2019-08-16] MEDS ORDERED: ONDANSETRON HCL 4 MG/2 ML VIAL IVP PRN (14:45)
[2019-08-16] MEDS ORDERED: LORazepam 2 MG/ML VIAL IVP PRN (14:45)
[2019-08-16] MEDS ORDERED: MORPHINE 2 MG/ML INJ. SYRINGE IVP PRN (14:45)
[2019-08-16] MEDS ORDERED: HYDROcodone/ACETAMIN 5-325 MG TAB (NORCO/ VICODIN) PO PRN (14:45)
[2019-08-16] MEDS ORDERED: MORPHINE 4 MG/ML INJ. SYRINGE IVP PRN (14:45)
[2019-08-16] MEDS ORDERED: HYDROmorphone 2 MG TAB PO PRN ×2 (16:45)
[2019-08-16 17:00] VITALS: BP_SYST 181
[2019-08-16] MEDS: HYDROmorphone 2 MG/ML VIAL IVP PRN ×2 (17:12→23:05)
[2019-08-16] MEDS ORDERED: cloNIDine HCL 0.1 MG TABLET ONE (17:17)
[2019-08-16] MEDS ORDERED: HYDROmorphone 2 MG/ML VIAL ONE (17:17)
[2019-08-16] MEDS: cloNIDine HCL 0.1 MG TABLET PO PRN (17:18)
[2019-08-16] MEDS: METHOCARBAMOL 500 MG TABLET PO SCH ×2 (18:00→23:05)
[2019-08-16] MEDS ORDERED: METHOCARBAMOL 500 MG TABLET GT SCH ×2 (18:00)
[2019-08-16 20:00] VITALS: BP_SYST 185
[2019-08-16] MEDS ORDERED: MORPHINE 4 MG/ML INJ. SYRINGE IVP ONE (20:00)
[2019-08-16] MEDS: PANTOPRAZOLE SODIUM 40 MG TAB PO SCH (20:26)
[2019-08-16] MEDS: NORMAL SALINE 5 ML DISP.SYRIN IVF SCH (21:38)
[2019-08-16] MEDS ORDERED: NORMAL SALINE 5 ML DISP.SYRIN IVF SCH (22:00)
[2019-08-17] VITALS: BP_SYST 154
[2019-08-17] MEDS: HYDROmorphone 2 MG/ML VIAL IVP PRN ×5 (02:46→21:24)
[2019-08-17 02:50] VITALS: BP_SYST 150
[2019-08-17] MEDS: METHOCARBAMOL 500 MG TABLET PO SCH ×3 (06:31→18:03)
[2019-08-17] MEDS: NORMAL SALINE 5 ML DISP.SYRIN IVF SCH ×3 (06:31→22:00)
[2019-08-17 07:38] LABS: BASOPHILS % (AUTO) 0.4 % (0.0-2.0); EOSINOPHILS % (AUTO) 0.9 % (0.0-4.0); HEMATOCRIT 39.7 % (36-54); HEMOGLOBIN 13.5 g/dL (14.0-18.0); LYMPHOCYTES # (AUTO) 0.5 K/uL (1.0-5.5); MEAN CORPUSCULAR HEMOGLOBIN 28 pg (27-31); MEAN CORPUSCULAR HGB CONC 34 % (32-36); MEAN CORPUSCULAR VOLUME 83 fL (79.0-98.0); MONOCYTES # (AUTO) 0.4 K/uL (0.0-1.0); MONOCYTES % (AUTO) 9.1 % (1.7-9.3); NEUTROPHILS # (AUTO) 3.6 K/uL (1.8-7.7); NEUTROPHILS % (AUTO) 78.6 % (40.0-70.0); PLATELET COUNT (AUTO) 134 K/uL (130-430); RED BLOOD CELL COUNT(AUTO) 4.81 MIL/uL (4.2-6.2); RED CELL DISTRIBUTION WIDTH 13.2 % (9.0-15.0)
[2019-08-17 07:52] LABS: WHITE BLOOD COUNT (AUTO) 4.5 K/uL (4.8-10.8)
[2019-08-17 07:53] LABS: CALCIUM 8.5 mg/dL (8.4-11.0); CREATININE 0.46 mg/dL (0.55-1.30); POTASSIUM 3.7 mmol/L (3.5-5.1)
[2019-08-17 08:37] VITALS: BP_SYST 182
[2019-08-17] MEDS: PANTOPRAZOLE SODIUM 40 MG TAB PO SCH ×2 (08:40→21:24)
[2019-08-17] MEDS: RIVAROXABAN 20 MG TABLET PO SCH (08:49)
[2019-08-17] MEDS ORDERED: LOSARTAN POTASSIUM 50 MG TABLET (COZAAR) PO SCH (09:00)
[2019-08-17] MEDS: cloNIDine HCL 0.1 MG TABLET PO PRN (10:32)
[2019-08-17 11:42] VITALS: BP_SYST 154
[2019-08-17 16:21] VITALS: BP_SYST 152
[2019-08-17] MEDS ORDERED: HYDROmorphone 2 MG TAB PO SCH (16:45)
[2019-08-17] MEDS: fentaNYL 25 MCG/HR PATCH TD SCH (18:02)
[2019-08-17] MEDS: HYDROmorphone 2 MG TAB PO SCH (18:54)
[2019-08-18] MEDS: METHOCARBAMOL 500 MG TABLET PO SCH ×4 (00:01→18:31)
[2019-08-18] MEDS: HYDROmorphone 2 MG TAB PO SCH ×6 (00:02→20:48)
[2019-08-18] MEDS: HYDROmorphone 2 MG/ML VIAL IVP PRN ×6 (02:07→23:32)
[2019-08-18 02:16] VITALS: BP_SYST 176
[2019-08-18] MEDS: cloNIDine HCL 0.1 MG TABLET PO PRN (02:41)
[2019-08-18] MEDS: NORMAL SALINE 5 ML DISP.SYRIN IVF SCH ×3 (06:11→22:00)
[2019-08-18 06:35] LABS: BASOPHILS % (AUTO) 0.4 % (0.0-2.0); EOSINOPHILS # (AUTO) 0.1 K/uL (0.0-0.4); EOSINOPHILS % (AUTO) 2.1 % (0.0-4.0); HEMATOCRIT 40.1 % (36-54); HEMOGLOBIN 13.5 g/dL (14.0-18.0); LYMPHOCYTES # (AUTO) 0.7 K/uL (1.0-5.5); LYMPHOCYTES % (AUTO) 14.6 % (20.5-51.5); MEAN CORPUSCULAR HEMOGLOBIN 28 pg (27-31); MEAN CORPUSCULAR HGB CONC 34 % (32-36); MEAN CORPUSCULAR VOLUME 83 fL (79.0-98.0); MONOCYTES # (AUTO) 0.5 K/uL (0.0-1.0); MONOCYTES % (AUTO) 11.3 % (1.7-9.3); NEUTROPHILS # (AUTO) 3.2 K/uL (1.8-7.7); NEUTROPHILS % (AUTO) 71.6 % (40.0-70.0); PLATELET COUNT (AUTO) 143 K/uL (130-430); RED BLOOD CELL COUNT(AUTO) 4.83 MIL/uL (4.2-6.2); RED CELL DISTRIBUTION WIDTH 13.1 % (9.0-15.0); WHITE BLOOD COUNT (AUTO) 4.5 K/uL (4.8-10.8)
[2019-08-18 07:32] LABS: CREATININE 0.49 mg/dL (0.55-1.30); POTASSIUM 3.7 mmol/L (3.5-5.1)
[2019-08-18] MEDS: PANTOPRAZOLE SODIUM 40 MG TAB PO SCH ×2 (09:32→20:49)
[2019-08-18] MEDS: LOSARTAN POTASSIUM 50 MG TABLET (COZAAR) PO SCH (09:33)
[2019-08-18] MEDS: HYDROCHLOROTHIAZIDE 25 MG TABLET (HCTZ) PO SCH (09:33)
[2019-08-18] MEDS: RIVAROXABAN 20 MG TABLET PO SCH (09:34)
[2019-08-18 12:26] VITALS: BP_SYST 160
[2019-08-18 16:18] VITALS: BP_SYST 126
[2019-08-19] MEDS: HYDROmorphone 2 MG TAB PO SCH ×6 (00:06→20:10)
[2019-08-19] MEDS: METHOCARBAMOL 500 MG TABLET PO SCH ×4 (00:21→17:49)
[2019-08-19 02:15] VITALS: BP_SYST 123
[2019-08-19] MEDS: NORMAL SALINE 5 ML DISP.SYRIN IVF SCH ×3 (06:00→20:10)
[2019-08-19 07:44] LABS: BASOPHILS % (AUTO) 0.6 % (0.0-2.0); EOSINOPHILS # (AUTO) 0.1 K/uL (0.0-0.4); EOSINOPHILS % (AUTO) 3.4 % (0.0-4.0); HEMATOCRIT 40.1 % (36-54); HEMOGLOBIN 13.7 g/dL (14.0-18.0); LYMPHOCYTES # (AUTO) 0.6 K/uL (1.0-5.5); LYMPHOCYTES % (AUTO) 14.3 % (20.5-51.5); MEAN CORPUSCULAR HEMOGLOBIN 28 pg (27-31); MEAN CORPUSCULAR HGB CONC 34 % (32-36); MEAN CORPUSCULAR VOLUME 82 fL (79.0-98.0); MONOCYTES # (AUTO) 0.5 K/uL (0.0-1.0); MONOCYTES % (AUTO) 13.1 % (1.7-9.3); NEUTROPHILS # (AUTO) 2.8 K/uL (1.8-7.7); NEUTROPHILS % (AUTO) 68.6 % (40.0-70.0); PLATELET COUNT (AUTO) 135 K/uL (130-430); RED BLOOD CELL COUNT(AUTO) 4.86 MIL/uL (4.2-6.2); RED CELL DISTRIBUTION WIDTH 13.5 % (9.0-15.0)
[2019-08-19 08:00] VITALS: BP_SYST 125
[2019-08-19 08:09] LABS: CALCIUM 8.6 mg/dL (8.4-11.0); CREATININE 0.52 mg/dL (0.55-1.30); POTASSIUM 3.5 mmol/L (3.5-5.1)
[2019-08-19] MEDS: PANTOPRAZOLE SODIUM 40 MG TAB PO SCH ×2 (08:30→20:10)
[2019-08-19] MEDS: HYDROCHLOROTHIAZIDE 25 MG TABLET (HCTZ) PO SCH (08:30)
[2019-08-19] MEDS: LOSARTAN POTASSIUM 50 MG TABLET (COZAAR) PO SCH (08:31)
[2019-08-19] MEDS: HYDROmorphone 2 MG/ML VIAL IVP PRN ×4 (08:32→21:16)
[2019-08-19] MEDS: RIVAROXABAN 20 MG TABLET PO SCH (09:00)
[2019-08-19 12:00] VITALS: BP_SYST 128
[2019-08-19 16:00] VITALS: BP_SYST 130
[2019-08-19 20:00] VITALS: BP_SYST 167
[2019-08-20] MEDS: HYDROmorphone 2 MG TAB PO SCH ×5 (00:15→16:00)
[2019-08-20] MEDS: METHOCARBAMOL 500 MG TABLET PO SCH ×4 (00:16→18:03)
[2019-08-20] MEDS: HYDROmorphone 2 MG/ML VIAL IVP PRN ×8 (04:38→20:00)
[2019-08-20] MEDS: NORMAL SALINE 5 ML DISP.SYRIN IVF SCH ×3 (06:08→16:18)
[2019-08-20 07:52] LABS: CALCIUM 8.9 mg/dL (8.4-11.0); CREATININE 0.59 mg/dL (0.55-1.30); POTASSIUM 4.3 mmol/L (3.5-5.1)
[2019-08-20 08:00] VITALS: BP_SYST 147
[2019-08-20 08:08] LABS: BASOPHILS % (AUTO) 0.5 % (0.0-2.0); EOSINOPHILS % (AUTO) 0.9 % (0.0-4.0); HEMATOCRIT 41.2 % (36-54); LYMPHOCYTES # (AUTO) 0.5 K/uL (1.0-5.5); LYMPHOCYTES % (AUTO) 9.7 % (20.5-51.5); MEAN CORPUSCULAR HEMOGLOBIN 28 pg (27-31); MEAN CORPUSCULAR HGB CONC 34 % (32-36); MEAN CORPUSCULAR VOLUME 84 fL (79.0-98.0); MONOCYTES # (AUTO) 0.6 K/uL (0.0-1.0); MONOCYTES % (AUTO) 11.2 % (1.7-9.3); NEUTROPHILS # (AUTO) 3.9 K/uL (1.8-7.7); NEUTROPHILS % (AUTO) 77.7 % (40.0-70.0); PLATELET COUNT (AUTO) 140 K/uL (130-430); RED BLOOD CELL COUNT(AUTO) 4.94 MIL/uL (4.2-6.2); RED CELL DISTRIBUTION WIDTH 13.1 % (9.0-15.0)
[2019-08-20] MEDS: LOSARTAN POTASSIUM 50 MG TABLET (COZAAR) PO SCH (08:11)
[2019-08-20] MEDS: PANTOPRAZOLE SODIUM 40 MG TAB PO SCH (08:11)
[2019-08-20] MEDS: HYDROCHLOROTHIAZIDE 25 MG TABLET (HCTZ) PO SCH (08:12)
[2019-08-20] MEDS: RIVAROXABAN 20 MG TABLET PO SCH (08:14)
[2019-08-20 11:26] VITALS: BP_SYST 134
[2019-08-20] MEDS: fentaNYL 25 MCG/HR PATCH TD SCH (16:23)
[2019-08-20] MEDS ORDERED: LORazepam 1 MG TABLET PO ONE (18:30)
[2019-08-20] MEDS ORDERED: LORazepam 1 MG TABLET ONE (19:15)
[2019-08-20 19:23] VITALS: BP_SYST 134
== END 2019-08-20 19:40 | disposition hospice, home (50) | DRG 392 ==
LOC: SED 11:38 → SMU 13:49
PROVIDERS: ADMIT Preventive Medicine Preventive Medicine/Occupational Environmental Medicine; ATTEND Preventive Medicine Preventive Medicine/Occupational Environmental Medicine
DX: R10.84 Generalized abdominal pain (principal); C25.9 Malignant neoplasm of pancreas, unspecified; E87.1 Hypo-osmolality and hyponatremia; I10 Essential (primary) hypertension; R73.9 Hyperglycemia, unspecified; M54.2 Cervicalgia; J44.9 Chronic obstructive pulmonary disease, unspecified; Z85.07 Personal history of malignant neoplasm of pancreas; Z86.711 Personal history of pulmonary embolism; Z86.718 Personal history of other venous thrombosis and embolism; Z79.899 Other long term (current) drug therapy
CPT/HCPCS: 36415; 80048; 80053; 83690-TC; 85025; 85610-TC; 85730-TC; 87081; 93005; 96374; 99285; J1170; J2270; J7120